=== PATIENT | female | born 1990 | race Two or more races ===

== ENCOUNTER 2020-01-12 11:20 | Observation (INO) | payer MEDICAID | END 2020-01-12 13:25 | disposition home or self-care (01) | DRG 566 | LOC: LDRP 11:20 | PROVIDERS: ADMIT Specialist; ATTEND Specialist | DX: O41.03X0 Oligohydramnios, third trimester, not applicable or unspecified (principal); Z3A.34 34 weeks gestation of pregnancy | CPT/HCPCS: 76818; 81002; G0378 ==

== ENCOUNTER 2020-01-14 12:11 | Observation (INO) | payer MEDICAID | END 2020-01-14 14:00 | disposition home or self-care (01) | DRG 566 | LOC: LDRP 12:11 | PROVIDERS: ADMIT Obstetrics & Gynecology; ATTEND Obstetrics & Gynecology | DX: O41.03X0 Oligohydramnios, third trimester, not applicable or unspecified (principal); Z3A.34 34 weeks gestation of pregnancy | CPT/HCPCS: 59025; 76818; 81002; G0378 ==

== ENCOUNTER 2020-01-17 10:05 | Observation (INO) | payer MEDICAID ==
[2020-01-17] MEDS ORDERED: PREN-96 PO (11:40)
[2020-01-17 11:53] LABS: Basophils # (auto) 0.1 10 ^3/uL (0-0.2); Basophils % (auto) 0.6 % (0.0-2.0); Eosinophils # (auto) 0.2 10 ^3/uL (0-0.8); Eosinophils % (auto) 1.9 % (0.0-7.0); Hematocrit 39.2 % (36.0-46.0); Hemoglobin 13.2 g/dL (12.2-16.2); Lymphocytes # (auto) 1.3 10 ^3/uL (0.4-5.4); Lymphocytes % (auto) 14.2 % (10.0-50.0); Mean Corpuscular Hemoglobin 29.8 pg (28.0-32.0); Mean Corpuscular Hgb Conc. 33.6 g/dL (32.0-36.0); Mean Corpuscular Volume 88.6 fL (80.0-100.0); Monocytes # (auto) 0.5 10 ^3/uL (0-1.3); Monocytes % (auto) 5.8 % (0.0-12.0); Neutrophils # (auto) 7.1 10 ^3/uL (1.6-8.6); Neutrophils % (auto) 77.5 % (37.0-80.0); Nucleated Red Blood Cells % 0.1 %; Platelet Count (auto) 173 10^3/uL (140-450); Red Blood Cells 4.43 10^6/uL (4.0-5.20); Red Cell Distribution Width 13.3 % (11.8-14.3); White Blood Cell 9.2 10^3/uL (4.4-10.8)
[2020-01-18 05:09] LABS: RPR Non Reactive (Non Reactive)
== END 2020-01-17 12:30 | disposition home or self-care (01) | DRG 566 ==
LOC: LDRP 10:05
PROVIDERS: ADMIT Obstetrics & Gynecology; ATTEND Obstetrics & Gynecology
DX: O41.03X0 Oligohydramnios, third trimester, not applicable or unspecified (principal); Z3A.35 35 weeks gestation of pregnancy
CPT/HCPCS: 36415; 76818; 81002; 84112; 85025; 86592; G0378

== ENCOUNTER 2020-01-24 10:55 | Observation (INO) | payer MEDICAID ==
[~2020-01-24 10:55] MED LIST: PREN-96 PO
== END 2020-01-24 13:20 | disposition home or self-care (01) | DRG 566 ==
LOC: LDRP 10:55
PROVIDERS: ADMIT Obstetrics & Gynecology; ATTEND Obstetrics & Gynecology
DX: O48.0 Post-term pregnancy (principal); Z3A.36 36 weeks gestation of pregnancy
CPT/HCPCS: 59025; 76818; 81002; G0378

== ENCOUNTER 2020-01-31 09:52 | Observation (INO) | payer MEDICAID | END 2020-01-31 11:50 | disposition home or self-care (01) | DRG 566 | LOC: LDRP 09:52 | PROVIDERS: ADMIT Specialist; ATTEND Specialist | DX: O41.03X0 Oligohydramnios, third trimester, not applicable or unspecified (principal); Z3A.37 37 weeks gestation of pregnancy | CPT/HCPCS: 59025; 76818; 81002; G0378 ==

== ENCOUNTER 2020-02-07 10:11 | Observation (INO) | payer MEDICAID ==
[2020-02-07] MEDS ORDERED: CEPH500C PO (11:43)
== END 2020-02-07 12:29 | disposition home or self-care (01) | DRG 566 ==
LOC: LDRP 10:11
PROVIDERS: ADMIT Specialist; ATTEND Specialist
DX: O41.03X0 Oligohydramnios, third trimester, not applicable or unspecified (principal); Z3A.38 38 weeks gestation of pregnancy
CPT/HCPCS: 59025; 76818; 81002; G0378

== ENCOUNTER 2020-02-15 09:30 | Observation (INO) | payer MEDICAID ==
[~2020-02-15 09:30] MED LIST changes: +CEPH500C PO
== END 2020-02-15 10:45 | disposition home or self-care (01) | DRG 566 ==
LOC: LDRP 09:30
PROVIDERS: ADMIT Specialist; ATTEND Specialist
DX: O26.893 Other specified pregnancy related conditions, third trimester (principal); Z3A.39 39 weeks gestation of pregnancy
CPT/HCPCS: 76818; G0378; U0003; 59025; 81002

== ENCOUNTER 2020-02-17 08:44 | Inpatient (IN) | payer MEDICAID ==
[~2020-02-17] VITALS: Ht 154.9 cm; Wt 78.0 kg
[2020-02-17] VITALS (14 sets, daily range): BP systolic 101–134; BP diastolic 59–89
[~2020-02-17 08:44] MED LIST changes: -CEPH500C PO
[2020-02-17] MEDS ORDERED: LACTATED RINGER'S 2,000 ML IV ONE (09:15)
[2020-02-17 09:42] LABS: Basophils # (auto) 0.1 10 ^3/uL (0-0.2); Basophils % (auto) 0.5 % (0.0-2.0); Eosinophils # (auto) 0.2 10 ^3/uL (0-0.8); Eosinophils % (auto) 1.4 % (0.0-7.0); Hematocrit 38.6 % (36.0-46.0); Hemoglobin 13.1 g/dL (12.2-16.2); Lymphocytes % (auto) 16.4 % (10.0-50.0); Mean Corpuscular Hemoglobin 29.9 pg (28.0-32.0); Mean Corpuscular Hgb Conc. 33.8 g/dL (32.0-36.0); Mean Corpuscular Volume 88.3 fL (80.0-100.0); Monocytes # (auto) 0.8 10 ^3/uL (0-1.3); Monocytes % (auto) 6.5 % (0.0-12.0); Neutrophils % (auto) 75.2 % (37.0-80.0); Nucleated Red Blood Cells % 0.1 %; Platelet Count (auto) 161 10^3/uL (140-450); Red Blood Cells 4.37 10^6/uL (4.0-5.20); Red Cell Distribution Width 14.1 % (11.8-14.3)
[2020-02-17 09:49] LABS: Urine Bacteria FEW /hpf (None Seen); Urine Blood Negative /uL (Negative); Urine Mucus FEW (None Seen); Urine Specific Gravity 1.015 (1.001-1.035); Urine WBC 21 /hpf (0 - 5)
[2020-02-17 09:58] LABS: Albumin 2.6 g/dL (3.4-5.0); BUN/Creatinine Ratio 12.7; Calcium 8.4 mg/dL (8.5-10.1); Potassium 4.1 mmol/L (3.5-5.1)
[2020-02-17 10:01] LABS: Bilirubin, Total 0.3 mg/dL (0.2-1.0); Total Protein 6.5 g/dL (6.4-8.2)
[2020-02-17 10:18] LABS: INR 0.95 (0.9-1.15); Partial Thromboplastin Time 27.1 sec (23.64-32.05)
[2020-02-17 10:54] LABS: Alcohol, Urine < 3.0 mg/dL (0-10); Amphetamine Screen, Urine NEGATIVE (NEGATIVE); Barbiturate Scree,Urine NEGATIVE (NEGATIVE); Benzodiazephine Screen, Urine NEGATIVE (NEGATIVE); Cannabinoid Screen, Urine NEGATIVE (NEGATIVE); Cocaine Screen, Urine NEGATIVE (NEGATIVE); Opiate Scree,Urine NEGATIVE (NEGATIVE); Phencyclidine Screen, Urine NEGATIVE (NEGATIVE)
[2020-02-17] MEDS ORDERED: MORPHINE SULF(PF) 0.5MG/ML 10ML VIAL ONE (11:35)
[2020-02-17] MEDS ORDERED: fentaNYL CITRATE 100 MCG/2 ML VL ONE (11:35)
[2020-02-17] MEDS ORDERED: oxyTOCIN 10 UNIT/ML 10ML VIAL ONE (11:39)
[2020-02-17] MEDS ORDERED: ONDANSETRON HCL 4 MG/2 ML VIAL ONE (11:39)
[2020-02-17] MEDS ORDERED: GLYCOPYRROLATE 0.2 MG/ML 1ML VIAL ONE (11:39)
[2020-02-17] MEDS ORDERED: ePHEDrine SULFATE 50 MG/ML AMP ONE (11:39)
[2020-02-17] MEDS ORDERED: TETRACAINE 1% INJ 2 ML VIAL IJ ONE (11:40)
[2020-02-17] MEDS ORDERED: SODIUM CITR/CITRIC ACID ORAL SOLN 30 ML ONE (11:48)
[2020-02-17] MEDS ORDERED: LACT. RINGERS/OXYTOCIN 20UNITS 1,000 ML IV SCH (12:32)
[2020-02-17] MEDS ORDERED: MORPHINE SULFATE 4 MG/ML SYR/VIAL IV PRN (12:45)
[2020-02-17] MEDS ORDERED: ceFAZolin 1GM/50ML 50 ML IV SCH (12:45)
[2020-02-17] MEDS ORDERED: ONDANSETRON HCL 4 MG/2 ML VIAL IV PRN ×3 (12:45→13:30)
[2020-02-17] MEDS ORDERED: KETOROLAC TROMETH 30 MG/ML 1ML VIAL IV PRN (13:15)
[2020-02-17] MEDS ORDERED: DexAMETHasone SOD PHOS 10MG/1ML VIAL INJ IV PRN (13:15)
[2020-02-17] MEDS ORDERED: HYDROmorphone HCL 2 MG/ML VL IV PRN (13:15)
[2020-02-17] MEDS ORDERED: NALBUPHINE HCL 10 MG/1ml INJECTION SUBCUT ONE (13:15)
[2020-02-17] MEDS ORDERED: NALOXONE HCL 0.4 MG/ML VIAL IV PRN (13:15)
--- NOTE | 2020-02-17 13:57 | NUR ---
Report received from Britton SHELBY RN on stable pt.
--- NOTE | 2020-02-17 14:06 | NUR ---
Pt arrives to the unit via bed from recovery room in stable condition. SCD's applied, Abdominal binder in place. No signs of distress or discomfort noted.
--- NOTE | 2020-02-17 14:17 | NUR ---
Report received from Chris Martin RN on stable pt. Assumed care.
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
--- NOTE | 2020-02-17 16:47 | NUR ---
health workers from social worker aide calls regarding social service consult placed. Informed that Maternal admission UDS negative and that there was not a UDS performed on . health workers states that she will call patient on the phone later this evening. Pt informed of social service consult and POC. Pt verbalizes understanding and agrees with POC.
[2020-02-17] MEDS: LACTATED RINGER'S 1,000 ML IV SCH (17:20)
--- NOTE | 2020-02-17 18:08 | NUR ---
Report given to Claire Falk RN on stable pt. Relinquished care. Addendum: 02/17/20 at 1812 by Dee Razo RN Amended: Links added.
[2020-02-17] MEDS ORDERED: ACETAMINOPHEN IV 1000 MG/100ML (10MG/ML) IV PRN (18:15)
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
[2020-02-17 20:07] LABS: Basophils # (auto) 0 10 ^3/uL (0-0.2); Basophils % (auto) 0.3 % (0.0-2.0); Eosinophils # (auto) 0.1 10 ^3/uL (0-0.8); Eosinophils % (auto) 0.5 % (0.0-7.0); Hematocrit 36.5 % (36.0-46.0); Hemoglobin 12.6 g/dL (12.2-16.2); Lymphocytes # (auto) 1.2 10 ^3/uL (0.4-5.4); Lymphocytes % (auto) 7.5 % (10.0-50.0); Mean Corpuscular Hemoglobin 30.7 pg (28.0-32.0); Mean Corpuscular Hgb Conc. 34.7 g/dL (32.0-36.0); Mean Corpuscular Volume 88.6 fL (80.0-100.0); Monocytes # (auto) 0.8 10 ^3/uL (0-1.3); Monocytes % (auto) 4.7 % (0.0-12.0); Neutrophils # (auto) 14.4 10 ^3/uL (1.6-8.6); Platelet Count (auto) 151 10^3/uL (140-450); Red Blood Cells 4.11 10^6/uL (4.0-5.20); Red Cell Distribution Width 14.1 % (11.8-14.3); White Blood Cell 16.5 10^3/uL (4.4-10.8)
[2020-02-17] MEDS: ceFAZolin 1GM/50ML 50 ML IV SCH (20:54)
[2020-02-18] VITALS: BP 118/70
--- NOTE | 2020-02-18 01:04 | NUR ---
Ambulation: Patient OOB to chair with standby assistance by RN. Patient ambulated with steady gait. Pericare done. Clean gown provided and bed linen changed. Patient ambulated back to bed with RN at bedside with steady gait and no distress noted.
[2020-02-18 02:58] VITALS: BP_SYST 109; BP_SYST 126; BP_DIAS 50; BP_DIAS 70
[2020-02-18] MEDS: LACTATED RINGER'S 1,000 ML IV SCH (03:08)
[2020-02-18] MEDS: ceFAZolin 1GM/50ML 50 ML IV SCH ×2 (03:59→12:13)
[2020-02-18 04:07] LABS: RPR Non Reactive (Non Reactive)
--- NOTE | 2020-02-18 04:08 | NUR ---
BIGGS REMOVED. PT TOLERATED WELL AND GREAT OUTPUT.
[2020-02-18 06:57] LABS: Basophils # (auto) 0 10 ^3/uL (0-0.2); Basophils % (auto) 0.3 % (0.0-2.0); Eosinophils # (auto) 0.2 10 ^3/uL (0-0.8); Eosinophils % (auto) 1.3 % (0.0-7.0); Hematocrit 34.1 % (36.0-46.0); Hemoglobin 11.7 g/dL (12.2-16.2); Lymphocytes # (auto) 1.4 10 ^3/uL (0.4-5.4); Lymphocytes % (auto) 11.7 % (10.0-50.0); Mean Corpuscular Hemoglobin 30.6 pg (28.0-32.0); Mean Corpuscular Hgb Conc. 34.2 g/dL (32.0-36.0); Mean Corpuscular Volume 89.5 fL (80.0-100.0); Monocytes # (auto) 0.7 10 ^3/uL (0-1.3); Monocytes % (auto) 5.5 % (0.0-12.0); Neutrophils % (auto) 81.2 % (37.0-80.0); Platelet Count (auto) 147 10^3/uL (140-450); Red Blood Cells 3.81 10^6/uL (4.0-5.20); White Blood Cell 12.3 10^3/uL (4.4-10.8)
--- NOTE | 2020-02-18 08:58 | NUR ---
Dr. Wing at bedside. Received Post Op day 1 orders, and to advance diet to soft diet once PT passes gas.
[2020-02-18] MEDS ORDERED: HYDROcodone-ACET 5/325MG TAB PO PRN (09:15)
[2020-02-18] MEDS ORDERED: BISACODYL 10 MG RECT SUPP PR PRN (09:15)
[2020-02-18] MEDS: DOCUSATE SOD 100 MG CAP PO SCH ×2 (10:30→21:59)
[2020-02-18 11:00] VITALS: BP 126/71
[2020-02-18] MEDS: SIMETHICONE 80 MG CHEWABLE TABLET PO SCH ×3 (12:17→21:59)
[2020-02-18] MEDS: HYDROcodone-ACET 5/325MG TAB PO PRN ×2 (15:12→22:04)
[2020-02-18 15:19] VITALS: BP 134/74
[2020-02-18] MEDS: IBUPROFEN 800 MG TAB PO PRN (19:55)
[2020-02-18 23:13] VITALS: BP 137/81
[2020-02-19 03:13] VITALS: BP 112/66
[2020-02-19] MEDS: SIMETHICONE 80 MG CHEWABLE TABLET PO SCH ×4 (06:22→21:37)
[2020-02-19 07:05] VITALS: BP 120/71
[2020-02-19] MEDS: IBUPROFEN 800 MG TAB PO PRN ×2 (07:17→21:37)
--- NOTE | 2020-02-19 07:20 | NUR ---
No redness, edema, ecchymosis, drainage, edges well approximated. [address] Pad to site. Abdominal binder in place. Addendum: 02/19/20 at 0810 by CATARINA BRIONES RN Amended: Links added.
--- NOTE | 2020-02-19 10:10 | NUR ---
Entered room. Mother sitting in bed, crying. Stated she "possibly fell". She was getting out of bed to get the baby and when she was attempting to get back into bed her "feet stuck to the ground". The next thing she remembers is sitting on the ground. The fall was not witnessed by anyone. Assisted patient to get fully back into bed. Re-educated patient on need to wear either nonskid socks or her shoes every time she gets out of bed, and call for assistance. Patient and significant other verbalized understanding. Patient denies any injuries or pain anywhere. Vital signs taken. Stated she didn't hit her head or any other extremity. She was more concerned about the . was in her arms at the time of the unwitnessed fall. Patient is afraid she hurt the infant, and "squeezed her or that she hit her head". Patient is unable to remember if she felt the possible hit any objects. The infant was in her arms, resting on her lap after the event. Dr Wing was called. Informed of the above information. Stated to continue to observe the patient and continue with same plan of care. Bed low, call light in reach, sd rails up x2. Significant other at bedside.
[2020-02-19 11:00] VITALS: BP 123/72
[2020-02-19] MEDS: DOCUSATE SOD 100 MG CAP PO SCH ×2 (11:07→21:37)
[2020-02-19] MEDS: HYDROcodone-ACET 5/325MG TAB PO PRN ×2 (11:09→17:45)
--- NOTE | 2020-02-19 13:49 | NUR ---
Per patient request, discontinued peripheral IV in left wrist. IV catheter intact, pressure dressing placed to site, patient tolerated well. Signed: 02/19/20 at 1352 by GAVINO OTOOLE <Co-Signature Required> Co-Signed: 02/19/20 at 1352 by CATARINA BRIONES RN Addendum: 02/19/20 at 1352 by GAVINO OTOOLE Amended: Links added.
[2020-02-19 15:08] VITALS: BP 129/85
[2020-02-19 19:00] VITALS: BP 132/73
[2020-02-19 23:00] VITALS: BP 130/78
[2020-02-20] MEDS: IBUPROFEN 800 MG TAB PO PRN (05:29)
[2020-02-20] MEDS: SIMETHICONE 80 MG CHEWABLE TABLET PO SCH (05:29)
[2020-02-20 07:13] VITALS: BP 124/68
--- NOTE | 2020-02-20 09:18 | NUR ---
VERIFIED WITH [facility] CONSULT WAS DONE AND PT OK TO GO HOME FROM THEIR POINT OF VIEW.
--- NOTE | 2020-02-20 09:19 | NUR ---
Discharge: Discharge instructions given as ordered. Pt encouraged to follow up with [facility] as instructed. All questions and concerns addressed. Patient verbalized understanding. Medication reconciliation completed and copy given to patient. All required/requested vaccines given and copies of vaccinations given to patient. Patient encouraged to prepare to depart unit.
--- NOTE | 2020-02-20 10:04 | NUR ---
CALLED DWIGHT THE SOCAIL WORKER UPDATED ON THE INCIDENCE LAST NIGHT, DWIGHT TALKED TO THE PT OVER THE PHONE AND SATES PT IS CLEARED TO GO HOME.
[2020-02-20 11:00] VITALS: BP 121/77
--- NOTE | 2020-02-20 11:40 | NUR ---
Discharge: Patient taken to vehicle via wheelchair with all personal belongings, accompanied by staff and family member. No distress noted at time of departure, no adverse changes in status since initial assessment.
== END 2020-02-20 11:40 | disposition home or self-care (01) | DRG 540 ==
LOC: LDRP 08:44
PROVIDERS: ADMIT Obstetrics & Gynecology; ATTEND Obstetrics & Gynecology
PROC: 10D00Z1 Extraction of Products of Conception, Low, Open Approach (ICD-10-PCS; principal; 2020-02-17 11:55)
DX: O34.211 Maternal care for low transverse scar from previous cesarean delivery (principal); Z37.0 Single live birth; Z3A.39 39 weeks gestation of pregnancy
CPT/HCPCS: 36415; 51702; 59025; 80053; 80307; 81001; 84112; 85025; 85610; 85730; 86592; 86850; 86900; 86901; 96361; 96366; G0378; J0131; J0690; J2405; J2590